=== PATIENT | female | born 1960 | race Caucasian/White ===

== ENCOUNTER → 2016-07-22 | Outpatient (CLI) | payer OTHER | LOC: CIMAGING 08:12 | DX: Z12.31 Encounter for screening mammogram for malignant neoplasm of breast (principal) | CPT/HCPCS: G0202 ==

== ENCOUNTER 2017-05-22 15:48 | Emergency (ER) | payer OTHER ==
[2017-05-22 15:59] VITALS: RESP 16; TEMP 97.3
--- NOTE | 2017-05-22 16:01 | CPEKG ---
Heart Rate: 82 RR Interval: 732 P-R Interval: 156 QRSD Interval: 74 QT Interval: 384 QTC Interval: 449 P Poth: 93 QRS Poth: 37 T Wave Poth: 35 EKG Severity - NORMAL ECG - EKG Impression: SINUS RHYTHM Electronically Signed By: Camron Mari 25-May-2017 09:38:41
[2017-05-22] MEDS ORDERED: ASPIRIN 81 MG CHEWABLE TAB PO ONE (16:07)
--- NOTE | 2017-05-22 16:11 | EDPHY ---
H & P Stated Complaint: CHEST TIGHTNESS Time Seen by Provider: 05/22/17 15:57 HPI/ROS: CHIEF COMPLAINT: Chest pain History by patient HISTORY OF PRESENT ILLNESS: 56-year-old otherwise healthy woman who is perimenopausal presents complaining of acute onset as pressure-like substernal chest pain which be began early this morning a waking her from sleep. It was associated with some shortness of breath but no nausea, vomiting or diaphoresis. She lay in bed for about an hour and the symptoms spontaneously resolved. Subsequently she has been feeling well except for an occasional pleuritic chest pain when she takes a deep breath. She has had no cough or fever. She had a upper respiratory or flu-like illness 2 weeks ago. She denies any leg pain or swelling. Patient has never smoked. Her cholesterol is unknown. She has no prior history of hypertension. There is no family history of heart disease. Patient states that she does not exercise regularly but walks frequently and does not normally get chest pain or shortness of breath when she walks. She has noted maybe some slight shortness of breath today when going up stairs. She has had no recent surgery, hospitalization, or immobilization. She is not on any hormones and states that she gets frequent hot flashes related to menopause. REVIEW OF SYSTEMS: As in HPI, and all other systems reviewed and are negative Source: Patient - Personal History LMP (Females 10-55): Post Menopausal Current Tetanus Diphtheria and Acellular Pertussis (TDAP): Yes - Medical/Surgical History Hx Asthma: No Hx Chronic Respiratory Disease: No Hx Diabetes: No Hx Cardiac Disease: No Hx Renal Disease: No Hx Cirrhosis: No Hx Alcoholism: No Hx HIV/AIDS: No Hx Splenectomy or Spleen Trauma: No Other PMH: FX R ANKLE - Social History Smoking Status: Never smoked - Physical Exam Exam: General Appearance: Alert, well-appearing. Head: normocephalic, atraumatic Eyes: Pupils equal and round, reactive to light, no pallor or injection. Extraocular movements intact Mouth: Mucous membranes moist. Respiratory: Normal, effort, lungs are clear to auscultation. No wheezes, rales or rhonchi. Cardiovascular: Regular rate and rhythm. S1, S2, no murmurs, gallops or rubs appreciated, no chest wall tenderness Gastrointestinal: Abdomen is soft and nontender, no masses, bowel sounds normal. Back: No CVA tenderness, no bony tenderness Neurological: Awake, alert and oriented x 3, no pronator drift, normal gait, no pronator drift Skin: Warm and dry, no rashes. Musculoskeletal: No deformities or tenderness. Extremities: full range of motion, no edema, DP2+ bilat Psychiatric: Patient has normal affect, there is no agitation. Constitutional: Initial Vital Signs Temperature (C) 36.3 C 05/22/17 15:56 Heart Rate 94 05/22/17 15:56 Respiratory Rate 16 05/22/17 15:56 Blood Pressure 165/81 H 05/22/17 15:56 O2 Sat (%) 95 05/22/17 15:56 O2 Delivery Mode Room Air Allergies/Adverse Reactions: No Known Allergies Allergy (Unverified 05/22/17 15:56) Home Medications: Medication Instructions Recorded NK [No Known Home Meds] 05/22/17 Medical Decision Making - Diagnostics EKG Interpretation: Normal sinus rhythm at a rate 82 with normal axis, normal intervals and no evidence of acute ischemia. Impression: Normal EKG Imaging Results: Imaging Impressions Chest X-Ray 05/22/17 16:09 Impression: No active cardiopulmonary disease. Imaging: I viewed and interpreted images myself ED Course/Re-evaluation: 56-year-old woman with cardiac risk factors of age and postmenopausal presents complaining of an episode of chest pain more than 5 hr prior to admission. Patient's initial ECG is unremarkable with no evidence of acute ischemia or other abnormality. Chest x-ray is unremarkable. On arrival the patient's blood pressure was somewhat elevated however she had just walked in and she has no prior history of hypertension. On re-evaluation her blood pressure normalized without intervention. Labs are all within normal limits including a 1st troponin and a D-dimer. Patient is a low pretest probability of pulmonary embolism and with a negative D-dimer her symptoms are unlikely to represent pulmonary embolism. Given the patient's heart score is less than 3 she is low risk for cardiac cause of her chest pain and I think it is safe for to follow up with her primary care physician as an outpatient. I did discuss this with the patient and she understands and is agreeable to this plan. She will follow up with primary care physician as soon as possible.. - Data Points Laboratory Results: Laboratory Results 05/22/17 16:27 05/22/17 16:27 05/22/17 05/22/17 05/22/17 16:27 16:27 16:27 WBC 6.74 10^3/uL 10^3/uL (3.80-9.50) RBC 4.75 10^6/uL 10^6/uL (4.18-5.33) Hgb 13.4 g/dL g/dL (12.6-16.3) Hct 38.7 % % (38.0-47.0) MCV 81.5 fL fL (81.5-99.8) MCH 28.2 pg pg (27.9-34.1) MCHC 34.6 g/dL g/dL (32.4-36.7) RDW 13.2 % % (11.5-15.2) Plt Count 303 10^3/uL 10^3/uL (150-400) MPV 9.4 fL fL (8.7-11.7) Neut % (Auto) 62.8 % % (39.3-74.2) Lymph % (Auto) 26.0 % % (15.0-45.0) [place] % (Auto) 8.3 % % (4.5-13.0) Eos % (Auto) 2.1 % % (0.6-7.6) Baso % (Auto) 0.7 % % (0.3-1.7) Nucleat RBC Rel Count 0.0 % % (0.0-0.2) Absolute Neuts (auto) 4.23 10^3/uL 10^3/uL (1.70-6.50) Absolute Lymphs (auto) 1.75 10^3/uL 10^3/uL (1.00-3.00) Absolute Monos (auto) 0.56 10^3/uL 10^3/uL (0.30-0.80) Absolute Eos (auto) 0.14 10^3/uL 10^3/uL (0.03-0.40) Absolute Basos (auto) 0.05 10^3/uL 10^3/uL (0.02-0.10) Absolute Nucleated RBC 0.00 10^3/uL 10^3/uL (0-0.01) Immature Gran % 0.1 % % (0.0-1.1) Immature Gran # 0.01 10^3/uL 10^3/uL (0.00-0.10) D-Dimer 0.37 ug/mLFEU ug/mLFEU (0.00-0.50) Sodium 141 mEq/L mEq/L (135-145) Potassium 4.2 mEq/L mEq/L (3.5-5.2) Chloride 103 mEq/L mEq/L (97-110) Carbon Dioxide 23 mEq/l mEq/l (22-31) Anion Gap 15 mEq/L mEq/L (8-16) BUN 17 mg/dL mg/dL (7-23) Creatinine 1.0 mg/dL mg/dL (0.6-1.0) Estimated GFR 58 Glucose 92 mg/dL mg/dL (70-100) Calcium 9.7 mg/dL mg/dL (8.5-10.4) Troponin I < 0.012 ng/mL ng/mL (0.000-0.034) Medications Given: Discontinued Medications Aspirin (Aspirin) 324 mg PO EDNOW ONE Stop: 05/22/17 16:08 Last Admin: 05/22/17 16:10 Dose: 324 mg Departure - Departure Disposition: Home, Routine, Self-Care Clinical Impression: Chest pain Qualifiers: Chest pain type: unspecified Qualified Code(s): R07.9 - Chest pain, unspecified Condition: Good Instructions: Chest Pain (ED) Additional Instructions: You were seen by Dr. Viktoriya Deshpande today. We have not determined the cause of your chest pain today. There is no evidence of an acute myocardial infarction (heart attack). I recommend you follow up as soon as possible with the primary care physician to discuss the need for further cardiac testing. Return for any worsening or new concerns. Referrals: NONE *PRIMARY CARE P,. [Primary Care Provider] - As per Instructions
[2017-05-22 16:38] LABS: PLATELET COUNT 303 10^3/uL (150-400)
[2017-05-22 18:05] VITALS: BP 125/73; PULSE 75; O2SAT 98
== END 2017-05-22 17:18 | disposition home or self-care (01) ==
LOC: CED 15:48
DX: R07.9 Chest pain, unspecified (principal)
CPT/HCPCS: 71046-PO; 80048-PO; 84484-PO; 85025-PO; 85378-PO